=== PATIENT | male | born 1945 | race Caucasian/White ===

== ENCOUNTER → 2018-04-19 | Outpatient (CLI) | payer MEDICARE, BC ==
[~2018-04-19] MED LIST: ASPI-1471 PO; PNEI IJ; PNEU0.5D3 IM; SERT-181 PO; SERT-184 PO
[2018-04-19 09:19] LABS: LDL CHOLESTEROL 124 mg/dl
== END ==
LOC: LAB 08:35
PROVIDERS: ATTEND Internal Medicine
DX: Z12.5 Encounter for screening for malignant neoplasm of prostate (principal); F33.2 Major depressive disorder, recurrent severe without psychotic features; E78.5 Hyperlipidemia, unspecified
CPT/HCPCS: 36415; 82040; 82247; 82310; 82374; 82435; 82465; 82565; 82947; 83718; 84075; 84132; 84153; 84155; 84295; 84450; 84460; 84478; 84520

== ENCOUNTER → 2019-04-27 | Outpatient (CLI) | payer MEDICARE, BC ==
--- NOTE | 2019-04-27 10:51 | EKG ---
FACILITY: [facility] [place] PATIENT NAME: KERRI CASEY : [id number] MR: [id number] V: [id number] EXAM DATE: ORDERING PHYSICIAN: ANGELA RUFF TECHNOLOGIST: ZENAIDA Test Reason : BRADYCARDIA Blood Pressure : / mmHG Vent. Rate : 045 BPM Atrial Rate : 055 BPM P-R Int : 000 ms QRS Dur : 140 ms QT Int : 436 ms P-R-T Axes : 000 -58 -16 degrees QTc Int : 377 ms Undetermined rhythm Left axis deviation Right bundle branch block Septal infarct , age undetermined Inferior infarct , age undetermined Abnormal ECG No previous ECGs available Confirmed by ANGELA RUFF ([id number]) on 04/27/2019 3:59:25 PM Referred By: SHANNA Confirmed By:ANGELA RUFF
--- NOTE | 2019-04-27 10:51 | EKG ---
FACILITY: [facility] PATIENT NAME: KERRI CASEY : [id number] MR: [id number] V: [id number] EXAM DATE: ORDERING PHYSICIAN: ANGELA RUFF TECHNOLOGIST: ZENAIDA Test Reason : BRADYCARDIA Blood Pressure : / mmHG Vent. Rate : 050 BPM Atrial Rate : 057 BPM P-R Int : 232 ms QRS Dur : 136 ms QT Int : 432 ms P-R-T Axes : 008 -59 -06 degrees QTc Int : 393 ms Sinus bradycardia with 1st degree AV block with premature atrial complexes Left axis deviation Right bundle branch block Septal infarct (cited on or before 27-APR-2019) Inferior infarct (cited on or before 27-APR-2019) Abnormal ECG When compared with ECG of 27-APR-2019 09:23, Previous ECG has undetermined rhythm, needs review Confirmed by ANGELA RUFF ([id number]) on 04/27/2019 3:59:18 PM Referred By: SHANNA Confirmed By:ANGELA RUFF
== END ==
LOC: RESP 10:22
PROVIDERS: ATTEND Internal Medicine
DX: Z02.9 Encounter for administrative examinations, unspecified (principal)